=== PATIENT | female | born 1950 | race Caucasian/White ===

== ENCOUNTER 2024-01-09 08:37 | Inpatient (IN) ==
--- NOTE | 2023-12-22 14:53 | PAT Medication Instructions ---
Medication Instructions Date of Service December 22, 2023 Home Medications amlodipine 2.5 mg tablet (Norvasc) 5 mg PO QAM celecoxib 200 mg capsule (Celebrex) 200 mg PO QAM cholecalciferol (vitamin D3) 25 mcg (1,000 unit) capsule 25 mcg PO DAILY diphenhydramine 25 mg-acetaminophen 500 mg tablet (Tylenol PM Extra Strength) 1 tab PO Q6H PRN Sleep docusate sodium 100 mg capsule 100 mg PO DAILY baclofen 10 mg tablet 5 mg PO TID PRN Muscle Spasm ezetimibe 10 mg tablet (Zetia) 5 mg PO QAM tramadol 50 mg tablet 50 mg PO QAM ASK your surgeon for instructions celecoxib 200 mg capsule (Celebrex) 200 mg PO QAM DO NOT take the morning of surgery cholecalciferol (vitamin D3) 25 mcg (1,000 unit) capsule 25 mcg PO DAILY docusate sodium 100 mg capsule 100 mg PO DAILY Take morning of surgery With a small sip of water, OTHERWISE NOTHING TO EAT OR DRINK AFTER MIDNIGHT: amlodipine 2.5 mg tablet (Norvasc) 5 mg PO QAM baclofen 10 mg tablet 5 mg PO TID PRN Muscle Spasm (if needed) ezetimibe 10 mg tablet (Zetia) 5 mg PO QAM tramadol 50 mg tablet 50 mg PO QAM Take evening before surgery diphenhydramine 25 mg-acetaminophen 500 mg tablet (Tylenol PM Extra Strength) 1 tab PO Q6H PRN Sleep (if needed) baclofen 10 mg tablet 5 mg PO TID PRN Muscle Spasm (if needed) Other Notes If you have any questions please call us at [phone] or [phone] or [phone] or [phone]
--- NOTE | 2023-12-26 11:49 | Anesthesiology Consultation ---
Date of Service December 26, 2023 Assessment & Plan (1) Encounter for pre-operative examination: Chart Review Chart Review: Pending: Refer to Additional Notes / Consult section (pending cardio evaluation/PCP clearance ) and Patient seen in Pre Admission Testing - Please set up cardio clearance with [facility] for abnormal preop EKG - Awaiting PCP clearance 01/05/24 (Dr Janice Hale) - please send preop testing to PCP for review Per PAT appt on 12/26/23, no recent illness/disease exposures, illness related symptoms, or recent illness/disease positive tests. Will leave to surgeon's dis cretion if preop Covid testing needed Teaching & Discussion Pre-Anesthesia Teaching/Discussion Notes: Instructed NPO after midnight before surgery,except medications with 15 cc of water. Medication instructions provided according to the PAT guidelines. History Surgery Operation Date: 01/09/24 10:25 Proposed Procedures p L4-L5 Decompression and Fusion with Spinal Cord Monitoring - Samuel Leigh, Height/Weight Height: 4 ft 10 in Weight: 71.6 kg Allergies Allergy/AdvReac Type Severity Reaction Status Date / Time acetaminophen AdvReac Unknown Gastrointestinal Verified 12/22/23 11:33 [From Tylenol-Codeine] Upset codeine AdvReac Unknown Gastrointestinal Verified 12/22/23 11:33 [From Tylenol-Codeine] Upset cat gut sutures Allergy Unknown redness, Uncoded 12/22/23 11:33 inflammation bactrim AdvReac Unknown Nausea Uncoded 12/22/23 11:33 Medications Home Medications Medication Instructions Recorded Confirmed Last Taken amlodipine 2.5 mg tablet (Norvasc) 5 mg PO QAM 09/09/22 12/22/23 Unknown celecoxib 200 mg capsule (Celebrex) 200 mg PO QAM 09/09/22 12/22/23 Unknown cholecalciferol (vitamin D3) 25 25 mcg PO DAILY 09/09/22 12/22/23 Unknown mcg (1,000 unit) capsule diphenhydramine 25 1 tab PO Q6H PRN Sleep 09/09/22 12/22/23 Unknown mg-acetaminophen 500 mg tablet (Tylenol PM Extra Strength) docusate sodium 100 mg capsule 100 mg PO DAILY 09/09/22 12/22/23 Unknown baclofen 10 mg tablet 5 mg PO TID PRN Muscle Spasm 07/06/23 12/22/23 Unknown ezetimibe 10 mg tablet (Zetia) 5 mg PO QAM 07/06/23 12/22/23 Unknown tramadol 50 mg tablet 50 mg PO QAM 12/22/23 12/22/23 Unknown Past Medical History Medical History Anxiety Dyslipidemia Heart murmur diagnosed as child History of COVID-2021- no hosp; resolved Hx of basal cell carcinoma back Hyperparathyroidism s/p parathyroidectomy- no current issues - only follows with PCP Hypertension Kidney stones No recent issues Nausea and vomiting after administration of anesthetic agent Spinal stenosis Severe at L4-5 Exercise / Class Metabolic Activity III < 4 Walking/Shop/Light housework (one flight of stairs - no chest pain or SOB- goes very slow ) Past Surgical History Surgical History H/O lumpectomy age 12 H/O parathyroidectomy H/O: hysterectomy History of carpal tunnel release Hx of bilateral cataract extraction Hx of colonoscopy Hx of cystoscopy Hx of lithotripsy Past Anesthesia History No Hx of Anesthesia Complications (with exception PONV ) and No Family Hx of Anesthesia Complications History of PONV No Hx of Motion Sickness and History of PONV Social History Smoking Status: Never smoker Do You Dip or Chew Tobacco: No Hx Alcohol Use: No Hx Substance Use: No substance use type: does not use Review of Systems - Hx of reflux - very occ- relieved with antacids Patient denies chest pain, shortness of breath, dyspnea on exertion, cough, wheezing, palpitations. No hx of seizures, stroke, VT. No hx of blood clots or blood transfusions Physical Exam Vital Signs VITALS BP 174/72 (increased pain from drive to appt- will recheck when home (usually 140s systolically) and follow up with PCP if still elevated) P 65 TEMP 97.7 SP02 100% RESP 16 Constitutional no acute distress ENMT Mouth: no TMJ clicking Thyromental Distance: > or= 3.5 Finger Breadths (3.5) Mallampati Class: II Broken left upper molar Cap molar Neck + limited neck extension (significant ) Respiratory normal respiratory effort; no respiratory distress Auscultation: lungs clear to auscultation bilaterally; no wheezes Cardiovascular Rate/Rhythm: regular rate and regular rhythm Heart Sounds: + murmur (II-III/) Vessels: + carotid bruit (presumed radiation for murmur ) Musculoskeletal Spine: + pain with cervical ROM Extremities: extremities normal to inspection Psychiatric Orientation: alert Lab Results Anesthesia Preop Results Results Anesthesia Widget: WBC 7.30 K/ul (4.8-10.8) 12/26/23 Hgb 14.5 g/dl (12.0-16.0) 12/26/23 Hct 42.4 % (37.0-47.0) 12/26/23 Plt 226 K/uL (130-400) 12/26/23 Na 139 mmol/L (136-145) 12/26/23 K 4.3 mmol/L (3.5-5.1) 12/26/23 Cl 105 mmol/L (98-107) 12/26/23 CO2 25 mmol/L (21-32) 12/26/23 BUN 24 mg/dl (6-23) H 12/26/23 Creat 0.78 mg/dl (0.6-1.2) 12/26/23 Glucose Level 91 mg/dl (70-99(Fasting)) 12/26/23 PT 10.3 Seconds (9.0-12.0) 12/26/23 PTT 28 Seconds (21-31) 12/26/23 INR 0.9 (0.9-1.1) 12/26/23 Urine Color Yellow 12/26/23 Urine Appearance Clear (Clear) 12/26/23 Urine pH 7.0 (4.5-7.5) 12/26/23 Urine Specific Kane 1.010 (1.000-1.030) 12/26/23 Urine Protein Negative (Negative) 12/26/23 Urine Glucose (UA) Negative (Negative) 12/26/23 Urine Ketones Trace (Negative) H 12/26/23 Urine Blood 3+ (Negative) H 12/26/23 Urine Nitrite Negative (Negative) 12/26/23 Urine Bilirubin Negative (Negative) 12/26/23 Urine Urobilinogen Negative (Negative) 12/26/23 Urine Leukocyte Esterase 2+ (Negative) H 12/26/23 Urine WBC (Auto) 10-30 /hpf (0-5) H 12/26/23 Urine RBC (Auto) 10-30 /hpf (0-4) H 12/26/23 Urine Hyaline Casts (Auto) 0 /lpf (0-5) 12/26/23 Urine Epithelial Cells (Auto) 10-20 /lpf (0-5) H 12/26/23 Urine Bacteria (Auto) Negative (Negative) 12/26/23 Blood Type A Positive 12/26/23 Antibody Screen NEGATIVE 12/26/23 Testing Electrocardiogram Date: 12/26/23 Findings: + NSR @ (63bpm ) T wave abnormality, consider inferior ischemia Chest X-Ray Date: 12/26/23 Findings: + NAD Echocardiogram Date: 12/10/21 EF: 55-60% LV Function: normal RWMA: + none Other Findings: no LVH Mitral valve: Cannot exclude previous repairtrace MR Aortic valve: Degenerated valve, no significant gradients, no AI RVSP = 37 mmHg. Other Testing Carotid duplex 12/10/21= mild bilateral plaque, without hemodynamically significant stenosis on either side
[~2024-01-09 08:37] MED LIST: DEXAMETHASONE SOD INJ 4 MG/ML VIAL ONE; GLYCOPYRROLATE 0.2 MG/ML VIAL ONE; LIDOCAINE 2% 2 ML VIAL/AMP(20MG/ML) INFIL ONE; MIDAZOLAM HCL 1 MG/ML 2ML VIAL ONE; ONDANSETRON INJ 2 MG/ML 2 ML VIAL ONE; PROPOFOL IV EMULSION 10 MG/ML 20 ML VIAL IV ONE; ROCURONIUM BROMIDE 10 MG/ML 5 ML VIAL IV ONE; SUGAMMADEX SODIUM 200 MG/2 ML VIAL IV ONE; fentaNYL citrate PF 100 MCG/2 ML VIAL ONE
[2024-01-09] MEDS: CeleBREX 200 MG CAP PO SCH (09:31)
[2024-01-09] MEDS: GABAPENTIN 300 MG CAP PO SCH (09:31)
[2024-01-09] MEDS: LACTATED RINGER'S 1,000 ML IV SCH ×2 (09:44→17:38)
[2024-01-09] MEDS: LR 60ML/HR IV SCH (09:44)
[2024-01-09] MEDS ORDERED: ePHEDrine sulfate 50 MG/ML AMP IV PRN (09:59)
[2024-01-09] MEDS ORDERED: ONDANSETRON INJ 2 MG/ML 2 ML VIAL IV PRN ×2 (09:59→14:26)
[2024-01-09] MEDS ORDERED: PROMETHAZINE HCL 6.25 MG in SODIUM CHLORIDE 0.9% 50 ML IV PRN (09:59)
[2024-01-09] MEDS ORDERED: HYDROmorphone INJ 1 MG/ML SYRINGE IV PRN ×2 (09:59→14:26)
[2024-01-09] MEDS ORDERED: ATROPINE SULFATE 0.1 MG/ML 10ML SYR IV PRN (09:59)
--- NOTE | 2024-01-09 10:02 | History & Physical Bridge Note ---
Date of Service January 09, 2024 History & Physical Bridge Note I have examined the patient, reviewed the History & Physical and in the interval since the performance of the History & Physical I have noted the following changes of clinical significance: no changes noted
--- NOTE | 2024-01-09 10:03 | History & Physical Report ---
Date of Service January 09, 2024 Assessment & Plan (1) Neurogenic claudication due to lumbar spinal stenosis: Plan: L4-L5 decompression and fusion History of Present Illness Chief Complaint: Back and leg pain Primary Care Provider: Janice Hale This is a 73-year-old female presents with chronic persistent back and leg pain after failing course of nonoperative care is here for surgical invention. Allergies Allergy/AdvReac Type Severity Reaction Status Date / Time acetaminophen AdvReac Unknown Gastrointestinal Verified 01/09/24 09:23 [From Tylenol-Codeine] Upset codeine AdvReac Unknown Gastrointestinal Verified 01/09/24 09:23 [From Tylenol-Codeine] Upset cat gut sutures Allergy Unknown redness, Uncoded 12/22/23 11:33 inflammation bactrim AdvReac Unknown Nausea Uncoded 12/22/23 11:33 Home Medications Medication Instructions Recorded Confirmed Type amlodipine 2.5 mg tablet (Norvasc) 5 mg PO QAM 09/09/22 01/09/24 History celecoxib 200 mg capsule (Celebrex) 200 mg PO QAM 09/09/22 01/09/24 History cholecalciferol (vitamin D3) 25 25 mcg PO DAILY 09/09/22 01/09/24 History mcg (1,000 unit) capsule diphenhydramine 25 1 tab PO Q6H PRN Sleep 09/09/22 01/09/24 History mg-acetaminophen 500 mg tablet (Tylenol PM Extra Strength) docusate sodium 100 mg capsule 100 mg PO DAILY 09/09/22 01/09/24 History baclofen 10 mg tablet 5 mg PO TID PRN Muscle Spasm 07/06/23 01/09/24 History ezetimibe 10 mg tablet (Zetia) 5 mg PO QAM 07/06/23 01/09/24 History tramadol 50 mg tablet 50 mg PO QAM 12/22/23 01/09/24 History Past Med/Surg History Medical History (Updated 01/09/24 @ 10:02 by Samuel Leigh DO) Pulmonary hypertension RVSP 52mmHg per 12/2023 ECHO Aortic stenosis At most mild per 01/02/24 ECHO Hyperparathyroidism s/p parathyroidectomy- no current issues - only follows with PCP Anxiety Heart murmur diagnosed as child Nausea and vomiting after administration of anesthetic agent Hx of basal cell carcinoma back History of COVID-2021- no hosp; resolved Kidney stones No recent issues Hypertension Dyslipidemia Spinal stenosis Severe at L4-5 Surgical History Hx of colonoscopy Hx of bilateral cataract extraction Hx of lithotripsy Hx of cystoscopy H/O lumpectomy age 12 H/O parathyroidectomy History of carpal tunnel release H/O: hysterectomy Social History Smoking Status: Never smoker Second Hand Exposure: No; Do You Dip or Chew Tobacco: No; Tobacco Cessation Education Requested by Patient: No Hx Alcohol Use: No Hx Substance Use: No Preferred Language: Mauritian Communication Ability: Effective Visual Impairment: No Limitations Hearing Ability: Normal Wrestling Coach Required: No Beliefs That Will Affect Care: None marital status: Current Living Situation: Spouse current occupational status: employed 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
[2024-01-09] MEDS: ceFAZolin 2000MG 2,000 MG/15 ML SYR IV SCH ×2 (10:22→18:29)
[2024-01-09] MEDS ORDERED: fentaNYL citrate PF 100 MCG/2 ML VIAL ONE (10:40)
[2024-01-09] MEDS: BUPIVACAINE/EPINEPHRINE 0.5% MPF 1:200,000 30 ML VIAL ONE (10:52)
[2024-01-09] MEDS ORDERED: METOPROLOL TARTRATE 1 MG/ML VIAL IV ONE (11:25)
[2024-01-09] MEDS ORDERED: LABETALOL HCL IV 5 MG/ML 20ML IV ONE (11:25)
[2024-01-09] MEDS: FLOSEAL HEMOSTATIC MATRIX 10ML TOP ONE (11:45)
[2024-01-09] MEDS: ceFAZolin 330 MG/ML 1 GM VIAL ONE (11:52)
--- NOTE | 2024-01-09 12:13 | Operative Report ---
Post Operative Report Pre & Post Diagnosis Operation Date: 01/09/24 10:25 Pre-Op Diagnosis: Neurogenic claudication due to lumbar spinal stenosis Post-Op Diagnosis: Neurogenic claudication due to lumbar spinal stenosis I identified the patient and participated in the time-out.: Yes Procedure Operation Date: 01/09/24 10:25 Actual Procedures #1 lumbar decompression bilaterally facetectomies and foraminotomies L3-L4 L4- L5. #2 posterior spinal fusion L4-5 #3 placement posterior instrumentation L4-5 per #4 interbody fusion L4-5. #5 placement of Spira 12 x 22 mm x 2 at L4-5. #6 placement locally harvested morselized autograft in the posterior gutters. #7 placement of infuse collagen sponge combined with Koros in the posterior lateral gutters and course in the interbody space. Surgeon Samuel Leigh, Microstrategy Developer None Estimated Blood Loss 100 Findings See Below Patient is 4 foot 10 weighing over 69 kg with a BMI in excess of 32. Patient body habitus did contribute to significant technical difficulty requiring deeper retractors longer instruments in order to perform her procedure. This at least 50% increased operative time. Specimens None Indications This is a 73-year-old female presents problems diagnosis of failed course of nonoperative care is here for surgical invention. Description of Procedure Patient was met with identified informed consent obtained. Patient was then taken to the operative suite underwent patient placed in a prone position the Jarvis table of the Josemanuel frame. All bony promises well-padded eyes inspected to ensure no external precipice spinal. This point lumbar spine was prepped and draped in a sterile fashion. Sharp dissection with the assistance of Bovie cautery form down to and exposing the lamina transverse processes of L4 and L5 bilaterally. From caudal cephalad fashion complete laminectomy of L4 partial laminectomy L3 was performed including bilateral medial facetectomies and foraminotomies addressing severe spinal stenosis. Pedicle screws were then placed in L for L5 bilaterally with assistance of fluoroscopy and appropriate size dorothy placed. Bilateral transforaminal approach and left a discectomy of L4- 5 was performed endplates guarded to subcortical bleeding bone and a 12 x 22 mm spiral cage filled with Koros bone graft tapped in position. Then proceeded to the right transforaminal region at L4-5. I completed the discectomy curetted the endplates to subcortical bleeding bone and placed a second 12 x 22 mm spiral cage filled with Koros into position. The rods were then compressed locked in final position bilaterally. The transverse processes of L4-5 burred to subcortical bleeding bone. Infuse collagen sponge, with Koros and local autograft placed in the posterior gutters. 15 round HEATHER inserted. The incision was then closed with 1 Vicryl to fascia 2-0 Vicryl subcutaneously and 4 Monocryl for final skin closure. Steri-Strips dressings placed. Patient awakened taken to PACU stable condition. Please note spinal cord monitoring was utilized at the procedure no changes noted. I attest to the content of the Intraoperative Record and any orders documented therein. Any exceptions are noted below.
--- NOTE | 2024-01-09 12:49 | Fluoroscopy Report ---
FL lumbar spine 2-3V CLINICAL HISTORY: L4-L5 DECOMPRESSION AND FUSION TECHNIQUE: 2 views were obtained with the C-arm in the OR with the above procedure. Total fluoroscopy time was 21 seconds. Radiation dose was 17.4 mGy. Comparison: Comparison is made to lumbar spine radiograph 07/19/2023 FINDINGS/IMPRESSION: Intraoperative images were obtained of L4-L5 decompression and fusion. Please correlate with intraoperative fluoroscopy and operative report. ACT 112: Negative or not required by law. Electronically signed by: Abner Ortiz M.D. 01/09/2024 12:48 PM
[2024-01-09] MEDS: fentaNYL citrate PF 100 MCG/2 ML VIAL IV PRN (13:22)
--- NOTE | 2024-01-09 13:27 | Anesthesiology Progress Note ---
Date of Service January 09, 2024 Anesthesia Post Procedure Vital Signs Vital Signs: Temp Pulse Pulse Resp BP Pulse Ox O2 Del Method 01/09/24 13:15 54 L 13 144/56 H 99 Room Air 01/09/24 13:05 36.4 C L 67 12 146/61 H 96 Room Air 01/09/24 12:55 59 L 14 166/67 H 96 Oxymask 01/09/24 12:45 56 L 11 L 142/58 H 100 Oxymask 01/09/24 12:35 58 L 12 141/63 H 100 Oxymask 01/09/24 12:25 69 14 144/59 H 100 Oxymask 01/09/24 12:19 36.6 C 61 13 141/53 H 100 Oxymask 01/09/24 09:34 36.7 C 75 20 196/88 H 99 Room Air O2 Flow Rate 01/09/24 13:15 01/09/24 13:05 01/09/24 12:55 2 01/09/24 12:45 2 01/09/24 12:35 5 01/09/24 12:25 5 01/09/24 12:19 5 01/09/24 09:34 Pain Intensity Bilateral Lower Back: Pain Intensity: 4 Transfer of Care Handoff Completed per policy Notes Mental Status: alert / awake / arousable and participated in evaluation Patient Amnestic to Procedure: Yes Nausea / Vomiting: adequately controlled Pain: adequately controlled Airway Patency, RR, SpO2: stable & adequate BP & HR: stable & adequate Hydration State: stable & adequate Anesthetic Complications: no major complications apparent and Pt Satisfied with anesthetic care Notes: Patient noted to have very transient ST depression in OR upon induction as patient became hypertensive and tachycardic in the low 120's. Anesthetic was deepened and patient had labetalol and metoprolol given with excellent response in lowering her HR and ST's went back to baseline. Despite her having a normal echo preop and no ECG changes (along with cardiac clearance), she has not had a stress test since 2013. In recovery, patient awake and alert and denied any chest pain/pressure. ECG done and no apparent changes when compared to preop ECG. I did contact hospitalist service who had been previously consulted and the y were going to ensure patient was on telemetry overnight and would likely encourage patient to pursue ischemic workup from her log tumbler moving forward (defer to their rec's).
[2024-01-09] MEDS ORDERED: diphenhydrAMINE Capsule 25 MG CAP PO PRN (14:26)
[2024-01-09] MEDS ORDERED: PROMETHAZINE HCL 12.5 MG in SODIUM CHLORIDE 0.9% 50 ML IV PRN (14:26)
[2024-01-09] MEDS ORDERED: ACETAMINOPHEN 500 MG TAB PO PRN (14:26)
[2024-01-09] MEDS ORDERED: SOD PHOSPHATE/SOD BIPHOSPHATE ENEMA 132 ML BTL PR PRN (14:26)
[2024-01-09] MEDS ORDERED: ACETAMINOPHEN 1,000 MG/100 ML VIAL IV PRN (14:26)
[2024-01-09] MEDS ORDERED: LORazepam 0.5 MG in SYRINGE 0.25 ML IV PRN (14:26)
[2024-01-09] MEDS ORDERED: FAMOTIDINE 20 MG TAB PO PRN (14:26)
[2024-01-09] MEDS ORDERED: MAGNESIUM HYDROXIDE SUSP 30 ML UDC PO PRN (14:26)
[2024-01-09] MEDS ORDERED: BACLOFEN 10 MG TAB PO PRN (14:26)
[2024-01-09] MEDS ORDERED: DO NOT ADMINISTER FLU VACCINE PRN (14:26)
[2024-01-09] MEDS ORDERED: LORazepam 0.5 MG TAB PO PRN (14:26)
[2024-01-09] MEDS ORDERED: bisacodyL 10 MG SUPP PR PRN (14:26)
[2024-01-09] MEDS ORDERED: METOCLOPRAMIDE HCL INJ 5 MG/ML 2 ML VIAL IV PRN (14:26)
[2024-01-09] MEDS ORDERED: DO NOT ADMINISTER PNEUMOCOCCAL VACCINE PRN (14:26)
[2024-01-09] MEDS ORDERED: ONDANSETRON 4 MG OD TAB PO PRN (14:26)
[2024-01-09] MEDS ORDERED: ALUMINUM/MAGNESIUM SUSP 30 ML UDC PO PRN (14:26)
[2024-01-09] MEDS ORDERED: HYDROmorphone INJ 0.5 MG/0.5 ML SYR IV PRN (14:26)
[2024-01-09] MEDS ORDERED: hydrOXYzine HCl 25 MG TAB PO PRN (14:26)
[2024-01-09] MEDS ORDERED: NALOXONE HCL 0.4 MG/1 ML VIAL/CARP IV PRN (14:26)
--- NOTE | 2024-01-09 15:09 | Electrocardiogram Report ---
Test Reason : Blood Pressure : / mmHG Vent. Rate : 058 BPM Atrial Rate : 058 BPM P-R Int : 144 ms QRS Dur : 090 ms QT Int : 446 ms P-R-T Axes : 054 -01 -74 degrees QTc Int : 437 ms Sinus bradycardia Moderate voltage criteria for LVH, may be normal variant T wave abnormality, consider anterolateral ischemia Nonspecific T wave abnormality Inferior leads Abnormal ECG When compared with ECG of 26-DEC-2023 11:48, T wave inversion now evident in Anterolateral leads Confirmed by Anibal Blevins ([id number]) on 01/09/2024 3:08:37 PM Referred By: Samuel Leigh Confirmed By:Anibal Blevins
--- NOTE | 2024-01-09 15:50 | Consultation ---
Date of Consultation January 09, 2024 Assessment & Plan (1) Neurogenic claudication due to lumbar spinal stenosis: (2) Abnormal EKG: (3) HLD (hyperlipidemia): (4) Osteoporosis: Plan Pt is a 73yoF with PMhx significant for HTN, HLD, RA, osteoporosis, chronic back pain who is s/p lumbar decompression and spinal fusion with Dr Leigh on 01/10/2024. Hospital Medicine consulted due to cardiac abnormalities noted by anesthesia during surgery. Abnormal EKG Intraop HTN and Tachycardia Per Anesthesia, pt with episode of HTN and tachycardia (as high as 120s) during surgery, noted ST depressions during that time Was treated with IV labetalol and metoprolol and HTN, tachycardia and ST depressions resolved Noted that pt had normal pre-op EKG and echocardiogram, receiving medical clearance from her pcp and Cardiology in [place] on 01/02/2024 -cardiology clearance with [place] [facility] noting aortic stenosis (mild) and possible mild pulmonary HTN noted on pre-op echo (home improvement contractor notes her PA pressure was ~50) -pt reportedly due to have outpt stress test with Cardiology, had one last in 2013 Given cardiac changes noted during surgery which is a "stressor" in itself, will repeat EKG, echo and consult Cardiology inpatient for further recs. Continuous telemetry monitoring post-op. Plan discussed with pt and family at bedside and she is agreeable to further evaluation. HTN On amlodipine 5mg usually, PCP medical clearance noted that it was increased to 7.5mg until her surgery. Continue with the 5mg dose at this time. HLD Continue home ezetimibe Osteoporosis Vit D deficiency Continue home Vit D supplement Chronic back pain Neurogenic claudication due to lumbar spinal stenosis s/p Lumbar Decompression and spinal fusion with Dr Leigh on 01/10/2024 EBL#100ml Pain management per ortho Wound management per ortho PT/OT as appropriate DVT prophylaxis per ortho Incentive spirometry Monitor H&H for acute blood loss anemia; Pre-op Hgb: 14.5 Holding home baclofen, Celebrex, tramadol at this time. DVT prophylaxis: SCDs/TEDS at this time, per primary team Diet: HH CODE STATUS: Full code Dispo: per primary team History of Present Illness Requesting Physician: Dr. Leigh Reason for Consultation: abnormal EKG Attending Physician: Samuel Leigh, DO History of Present Illness Pt is a 73yoF with PMhx significant for HTN, HLD, RA, osteoporosis, chronic back pain who is s/p lumbar decompression and spinal fusion with Dr Leigh on 01/10/2024. Hospital Medicine consulted due to cardiac abnormalities noted by anesthesia during surgery. Pt was seen with family at bedside. Per Dr Patten, pt had episode of HTN and tachycardia to the 120s that resolved after administration of labetatol and metoprolol. However, ST depressions were noted during this time. Pt received pre-op cardiology clearance with recent unremarkable EKG and echo. Last stress test reportedly in 2013. She states that she climbs about 17 steps daily with no episodes of chest pain, SOB or palpitations. Post op noted that she felt fine, a bit groggy from the pain medications but denying chest pain, SOB, palpitations, N/V. States that she is due to follow up with [facility] as an outpt. Allergies Allergy/AdvReac Type Severity Reaction Status Date / Time acetaminophen AdvReac Unknown Gastrointestinal Verified 01/09/24 09:23 [From Tylenol-Codeine] Upset codeine AdvReac Unknown Gastrointestinal Verified 01/09/24 09:23 [From Tylenol-Codeine] Upset sulfamethoxazole AdvReac Nausea Verified 01/09/24 14:36 [From Sulfamethoxazole-Trimethoprim] trimethoprim AdvReac Nausea Verified 01/09/24 14:36 [From Sulfamethoxazole-Trimethoprim] cat gut sutures Allergy Unknown redness, Uncoded 12/22/23 11:33 inflammation Home Medications Medication Instructions Recorded Confirmed Type amlodipine 2.5 mg tablet (Norvasc) 5 mg PO QAM 09/09/22 01/09/24 History celecoxib 200 mg capsule (Celebrex) 200 mg PO QAM 09/09/22 01/09/24 History cholecalciferol (vitamin D3) 25 25 mcg PO DAILY 09/09/22 01/09/24 History mcg (1,000 unit) capsule diphenhydramine 25 1 tab PO Q6H PRN Sleep 09/09/22 01/09/24 History mg-acetaminophen 500 mg tablet (Tylenol PM Extra Strength) docusate sodium 100 mg capsule 100 mg PO DAILY 09/09/22 01/09/24 History baclofen 10 mg tablet 5 mg PO TID PRN Muscle Spasm 07/06/23 01/09/24 History ezetimibe 10 mg tablet (Zetia) 5 mg PO QAM 07/06/23 01/09/24 History tramadol 50 mg tablet 50 mg PO QAM 12/22/23 01/09/24 History Patient History Medical History (Updated 01/10/24 @ 02:17 by Dalia Montero MD) Pulmonary hypertension RVSP 52mmHg per 12/2023 ECHO Aortic stenosis At most mild per 01/02/24 ECHO Hyperparathyroidism s/p parathyroidectomy- no current issues - only follows with PCP Anxiety Heart murmur diagnosed as child Nausea and vomiting after administration of anesthetic agent Hx of basal cell carcinoma back History of COVID-2021- no hosp; resolved Kidney stones No recent issues Hypertension Dyslipidemia Spinal stenosis Severe at L4-5 Surgical History Hx of colonoscopy Hx of bilateral cataract extraction Hx of lithotripsy Hx of cystoscopy H/O lumpectomy age 12 H/O parathyroidectomy History of carpal tunnel release H/O: hysterectomy Social History Smoking Status: Never smoker Second Hand Exposure: No; Do You Dip or Chew Tobacco: No; Tobacco Cessation Education Requested by Patient: No Hx Alcohol Use: No Hx Substance Use: No Preferred Language: Burundian Communication Ability: Effective Visual Impairment: No Limitations Hearing Ability: Normal Staff Radiation Therapist Required: No Beliefs That Will Affect Care: None marital status: Current Living Situation: Spouse current occupational status: employed 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 No acute distress Psych: Appropriate mood and affect Neuro: difficulty with movements post-op in the bed HEENT: NC/AT Chest: Nontender to palpation. CV: RRR, Normal s1, s2. Blowing murmur appreciated Resp: Breath sounds clear bilaterally, no increased effort of breathing. Abdomen: Soft, nontender, nondistended. Extremities: No edema in lower extremities bilaterally. Results & Data Vital Signs (Past 12 Hours) Vital Signs Temp Pulse Pulse Resp BP Pulse Ox O2 Del Method 01/09/24 14:45 59 L 15 134/57 L 96 Room Air 01/09/24 14:15 52 L 12 130/52 L 94 Room Air 01/09/24 13:45 67 17 138/56 L 96 Room Air 01/09/24 13:35 55 L 13 146/60 H 98 Room Air 01/09/24 13:25 53 L 12 142/60 H 97 Room Air 01/09/24 13:15 54 L 13 144/56 H 99 Room Air 01/09/24 13:05 36.4 C L 67 12 146/61 H 96 Room Air 01/09/24 12:55 59 L 14 166/67 H 96 Oxymask 01/09/24 12:45 56 L 11 L 142/58 H 100 Oxymask 01/09/24 12:35 58 L 12 141/63 H 100 Oxymask 01/09/24 12:25 69 14 144/59 H 100 Oxymask 01/09/24 12:19 36.6 C 61 13 141/53 H 100 Oxymask 01/09/24 09:34 36.7 C 75 20 196/88 H 99 Room Air O2 Flow Rate 01/09/24 14:45 01/09/24 14:15 01/09/24 13:45 01/09/24 13:35 01/09/24 13:25 01/09/24 13:15 01/09/24 13:05 01/09/24 12:55 2 01/09/24 12:45 2 01/09/24 12:35 5 01/09/24 12:25 5 01/09/24 12:19 5 01/09/24 09:34 Diagnostic Findings Lumbar Spine X-Ray 01/09/24 10:25 FL lumbar spine 2-3V CLINICAL HISTORY: L4-L5 DECOMPRESSION AND FUSION TECHNIQUE: 2 views were obtained with the C-arm in the OR with the above procedu re. Total fluoroscopy time was 21 seconds. Radiation dose was 17.4 mGy. Comparison: Comparison is made to lumbar spine radiograph 07/19/2023 FINDINGS/IMPRESSION: Intraoperative images were obtained of L4-L5 decompression and fusion. Please correlate with intraoperative fluoroscopy and operative report. ACT 112: Negative or not required by law. Electronically signed by: Abner Ortiz M.D. 01/09/2024 12:48 PM
[2024-01-09] MEDS: DOCUSATE SODIUM/SENNA 50/8.6MG TAB PO SCH (21:09)
[2024-01-09] MEDS: oxyCODONE HCL IR 5 MG TAB (IMMEDIATE RELEASE) PO PRN (22:37)
[2024-01-10] MEDS: POLYETHYLENE (MIRALAX) 17 GM PACK PO SCH (05:41)
[2024-01-10 07:30] LABS: Basophils # (auto) 0.02 K/uL (0.00-0.20); Basophils % (auto) 0.2 %; Eosinophils # (auto) 0.01 K/uL (0.00-0.50); Eosinophils % (auto) 0.1 %; Hematocrit (blood only) 32.4 % (37.0-47.0); Hemoglobin 10.9 g/dl (12.0-16.0); Immature Granulocytes # (auto) 0.04 K/uL (0.01-0.20); Immature Granulocytes % (auto) 0.4 %; Lymphocytes # (auto) 1.72 K/uL (1.20-3.40); Mean Corpuscular Hemoglobin 31.5 pg (25.0-34.0); Mean Corpuscular Hgb Conc 33.6 g/dL (32.0-36.0); Mean Corpuscular Volume 93.6 fL (80.0-100.0); Mean Platelet Volume 10.8 fL (9.4-12.4); Monocytes # (auto) 0.97 K/uL (0.11-0.59); Neutrophils # (auto) 8.02 K/uL (1.40-6.50); Neutrophils % (auto) 74.3 %; Platelet Count 173 K/uL (130-400); RDW Standard Deviation 41.2 fL (36.4-46.3); Red Blood Count 3.46 M/uL (4.20-5.40); White Blood Count 10.78 K/ul (4.8-10.8)
[2024-01-10 07:58] LABS: BUN Creatinine Ratio 25.4 (10-20); Calcium 8.5 mg/dl (8.6-10.3); Creatinine Clr Calc Pharmacy 59.3 ml/min; Est GFR (African American) 97.3 ml/min; Est GFR (Non-African American) 83.9 ml/min
--- NOTE | 2024-01-10 08:44 | Cardiology Consultation ---
Date of Consultation January 10, 2024 Assessment & Plan (1) Abnormal EKG: (2) Neurogenic claudication due to lumbar spinal stenosis: (3) Hypertension: Plan Patient seen/evaluated today in collaboration with attending microsoft dynamics ax consultant, Dr. Yusuf. See attending microsoft dynamics ax consultant's documentation for recommendations and further plan of care. Supervising Physician Co-Signing Physician Notes Attending Staff: Pt seen and evaluated with AP Staff Concur with observations and plans 73 yo woman presenting for Spinal Surgery - 01/09/24 Consult for- Abnormal EKG and Tachycardia during surgery HTN + Tahcycardia during surgery Treated with IV Labetalol and IV Metoprolol - improvement in Tachycardia ? of SVT - HR's reported to be in the 120's No Strips Available No known Hx of Afib/flutter EKG - post op - Anterolateral TWI. NC 144, question of Delta wave K+ was 4 TSH - Pending Hx: * HTN * Hyperlipidemia * Mild - 12/2023 * Abnormal EKG - inferior TWI - prior to OR visit Plans: * Check Troponin * Repeat EKG * K+ goal 4.5-5 * Mag goal >2 * Check TSH * Check ECHO * Start Toprol XL 12.5 mg po per day * Start Lisinopril 5 mg po per day later today if SBP >130 mmHg * May be able to manage SBP with only RICARDO * Check LDL * Continue Zetia 10 mg po per day * Pt with myalgias on Statin Jordy Yusuf History of Present Illness Reason for Consultation: Abnormal EKG; Tachycardia during spinal surgery Requesting Physician: Dr. Montero Attending Physician: Dr. Yusuf History of Present Illness Patient is a 73-year-old female who was admitted to [facility] for Lumbar decompression and spinal fusion with Dr. Leigh on 01/10/2024. History includes: 1. Hypertension 2. Dyslipidemia 3. Mild Aortic stenosis per echo in Dec 2023 4. Abnormal EKG with T wave inversion in inferior leads (preop) During operation, patient was found to have an episode of tachycardia with heart rates in the 120s and resultant ST depression. Treated with IV labetalol and IV metoprolol and HR improved. EKG was not obtained during that time. Post op EKG was obtained which demonstrated sinus hellen with T wave inversions in anterolateral leads. EKG obtained here during preop eval demonstrated NSR with inferior T wave abnormalities. No anginal symptoms reported. Last stress test in 2013. Patient apparently was evaluated by [facility] for medical/cardiac clearance prior to surgery. She had echo which demonstrated mild aortic stenosis, mild pulm hypertension. EKG was without ischemic changes per notes. EKG obtained here during preop eval demonstrated NSR with inferior T wave abnormalities. No anginal symptoms reported. Last stress test in 2013. Patient reported she was chest pain free upon awakening from surgery. however, given abnormal EKG and events during surgery, further evaluation was recommended. Echo was ordered and is pending. HS troponin was not ordered. At time of consult patient feeling well this morning. Mild back pain with movement. No chest pain/dyspnea reported. No history of arrhythmias. No history of syncope or near syncope. No history of CVA. No history of MD/CAD, CHF Allergies Allergy/AdvReac Type Severity Reaction Status Date / Time acetaminophen AdvReac Unknown Gastrointestinal Verified 01/09/24 09:23 [From Tylenol-Codeine] Upset codeine AdvReac Unknown Gastrointestinal Verified 01/09/24 09:23 [From Tylenol-Codeine] Upset sulfamethoxazole AdvReac Nausea Verified 01/09/24 14:36 [From Sulfamethoxazole-Trimethoprim] trimethoprim AdvReac Nausea Verified 01/09/24 14:36 [From Sulfamethoxazole-Trimethoprim] cat gut sutures Allergy Unknown redness, Uncoded 12/22/23 11:33 inflammation Home Medications Medication Instructions Recorded Confirmed Type amlodipine 2.5 mg tablet (Norvasc) 5 mg PO QAM 09/09/22 01/09/24 History celecoxib 200 mg capsule (Celebrex) 200 mg PO QAM 09/09/22 01/09/24 History cholecalciferol (vitamin D3) 25 25 mcg PO DAILY 09/09/22 01/09/24 History mcg (1,000 unit) capsule diphenhydramine 25 1 tab PO Q6H PRN Sleep 09/09/22 01/09/24 History mg-acetaminophen 500 mg tablet (Tylenol PM Extra Strength) docusate sodium 100 mg capsule 100 mg PO DAILY 09/09/22 01/09/24 History baclofen 10 mg tablet 5 mg PO TID PRN Muscle Spasm 07/06/23 01/09/24 History ezetimibe 10 mg tablet (Zetia) 5 mg PO QAM 07/06/23 01/09/24 History tramadol 50 mg tablet 50 mg PO QAM 12/22/23 01/09/24 History oxycodone 5 mg tablet 5 mg PO Q6H PRN pain #30 tabs 01/10/24 Rx tramadol 50 mg tablet 50 mg PO Q6H PRN pain, moderate 01/10/24 Rx #30 tabs Patient History Medical History (Updated 01/10/24 @ 09:04 by Sariah Alejo PA-C) Pulmonary hypertension RVSP 52mmHg per 12/2023 ECHO Aortic stenosis At most mild per 01/02/24 ECHO Hyperparathyroidism s/p parathyroidectomy- no current issues - only follows with PCP Anxiety Heart murmur diagnosed as child Nausea and vomiting after administration of anesthetic agent Hx of basal cell carcinoma back History of COVID-2021- no hosp; resolved Kidney stones No recent issues Hypertension Dyslipidemia Spinal stenosis Severe at L4-5 Surgical History Hx of colonoscopy Hx of bilateral cataract extraction Hx of lithotripsy Hx of cystoscopy H/O lumpectomy age 12 H/O parathyroidectomy History of carpal tunnel release H/O: hysterectomy Social History Smoking Status: Never smoker Second Hand Exposure: No; Do You Dip or Chew Tobacco: No; Tobacco Cessation Education Requested by Patient: No Hx Alcohol Use: No Hx Substance Use: No Preferred Language: [place] Islander Communication Ability: Effective Visual Impairment: No Limitations Hearing Ability: Normal Sewing Supervisor Required: No Beliefs That Will Affect Care: None marital status: Current Living Situation: Spouse current occupational status: employed 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, 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 Other Information That Helps Us Care for You: No Feels Safe at Home: Yes Safety Concerns: Feels Safe At This Time Assistive Devices: None Review of Systems Review of Systems: All systems reviewed & are unremarkable except as noted in HPI & below Physical Exam Physical Exam: Obese Glasses JVP at base of neck 2-3/6 Systolic murmur c/w S2 audible CTA B + BS No edema Extremities warm and perfused Results & Data Vital Signs (Past 12 Hours) Vital Signs Temp Pulse Pulse Pulse Resp BP Pulse Ox 01/10/24 07:44 36.8 C 68 18 155/70 H 96 01/10/24 07:27 70 01/10/24 04:00 36.7 C 64 17 160/80 H 96 01/10/24 02:57 36.7 C 64 17 160/80 H 96 01/10/24 00:00 36.7 C 71 18 134/68 95 01/09/24 22:33 36.7 C 71 18 134/68 95 01/09/24 21:58 63 01/09/24 20:56 36.8 C 61 18 144/68 H 95 O2 Del Method 01/10/24 07:44 Room Air 01/10/24 07:27 01/10/24 04:00 Room Air 01/10/24 02:57 Room Air 01/10/24 00:00 Room Air 01/09/24 22:33 Room Air 01/09/24 21:58 01/09/24 20:56 Room Air Laboratory Results CBC 01/10/24 Range/Units 06:49 WBC 10.78 (4.8-10.8) K/ul RBC 3.46 L (4.20-5.40) M/uL Hgb 10.9 L (12.0-16.0) g/dl Hct 32.4 L (37.0-47.0) % Plt Count 173 (130-400) K/uL Neut # (Auto) 8.02 H (1.40-6.50) K/uL Lymph # (Auto) 1.72 (1.20-3.40) K/uL [place] # (Auto) 0.97 H (0.11-0.59) K/uL Eos # (Auto) 0.01 (0.00-0.50) K/uL Baso # (Auto) 0.02 (0.00-0.20) K/uL Comprehensive Metabolic Panel 01/10/24 Range/Units 06:49 Sodium 139 (136-145) mmol/L Potassium 4.0 (3.5-5.1) mmol/L Chloride 107 (98-107) mmol/L Carbon Dioxide 27 (21-32) mmol/L BUN 18 (6-23) mg/dl Creatinine 0.71 (0.6-1.2) mg/dl Glucose 95 (70-99(Fasting)) mg/dl Calcium 8.5 L (8.6-10.3) mg/dl Intake and Output 01/09/24 01/10/24 01/10/24 22:59 06:59 14:59 Intake Total 450 / 3313.334 1463.334 / 3313.334 Output Total 650 / 1160 140 / 1160 Balance -200 / 2153.334 1323.334 / 2153.334 Intake: IV 1263.334 / 1263.334 Lactated Ringer's 1,000 ml @ 1263.334 / 1263.334 100 mls/hr IV .Q10H [facility] Rx#: [id number] IV Perioperative 300 / 1700 Oral 150 / 350 200 / 350 Output: Urine 350 / 500 Drain Output 300 / 560 140 / 560 Right Back 300 / 560 140 / 560 Other: Weight 75.296 kg 72.1 kg Weight Measurement Method Built in [facility] Built in [facility] Diagnostic Findings Telemetry reviewed: NSR with HR in the 60-70's EKG reviewed from 01/09/24: Sinus bradycardia Moderate voltage criteria for LVH, may be normal variant T wave abnormality, consider anterolateral ischemia Nonspecific T wave abnormality Inferior leads Abnormal ECG When compared with ECG of 26-DEC-2023 11:48, T wave inversion now evident in Anterolateral leads Echo report reviewed from [facility] dated 01/02/24: 1. LV size and wall thickness is normal. EF 60-65% 2. RV is normal in size and function 3. Degenerated aortic valve, at most mild 4. Mild TR with RVSP 52 mmHg EKG reviewed from 12/26/23: NSR with T wave abnormality in inferior leads. No prior EKG's for comparison Medications Administered Current Inpatient Medications Acetaminophen (Acetaminophen 500 Mg Tab) 1,000 mg PO Q8H PRN PRN Reason: MILD Pain Scale 1,2,3 & Pre PT Stop: 02/08/24 14:25 Al Hydrox/Mg Hydrox/Simethicone (Aluminum/Magnesium Susp 30 Ml Udc) 30 ml PO Q6H PRN PRN Reason: Dyspepsia Stop: 02/08/24 14:25 Amlodipine Besylate (Amlodipine Besylate 5 Mg Tab) 5 mg PO QAM [facility] Stop: 02/09/24 08:59 Baclofen (Baclofen 10 Mg Tab) 5 mg PO TID PRN PRN Reason: Muscle Spasm Stop: 02/08/24 14:25 Bisacodyl (Bisacodyl 10 Mg Supp) 10 mg NC DAILY PRN PRN Reason: Constipation Stop: 02/08/24 14:25 Diphenhydramine HCl (Diphenhydramine Capsule 25 Mg Cap) 25 mg PO Q6H PRN PRN Reason: Allergic Rhinitis/Insomnia Stop: 02/08/24 14:25 Ezetimibe (Ezetimibe 10 Mg Tab) 5 mg PO QAM [facility] Stop: 02/09/24 08:59 Famotidine (Famotidine 20 Mg Tab) 20 mg PO Q12H PRN PRN Reason: Dyspepsia Stop: 02/08/24 14:25 Hydromorphone HCl (Hydromorphone Inj 0.5 Mg/0.5 Ml Syr) 0.5 mg IV Q3H PRN PRN Reason: MODERATE Pain (Scale 4,5,6) & Pre PT Stop: 01/23/24 14:25 Hydromorphone HCl (Hydromorphone Inj 1 Mg/Ml Syringe) 1 mg IV Q3H PRN PRN Reason: SEVERE Pain (Scale 7,8,9,10) Stop: 01/23/24 14:25 Hydroxyzine HCl (Hydroxyzine Hcl 25 Mg Tab) 25 mg PO Q8H PRN PRN Reason: Anxiety Stop: 02/08/24 14:25 Lactated Ringer's (Lr) 1,000 mls @ 100 mls/hr IV .Q10H [facility] Stop: 02/08/24 14:25 Last Infusion: 01/10/24 06:16 Dose: 0 mls/hr Promethazine HCl 12.5 mg/ (Sodium Chloride) 50.5 mls @ 202 mls/hr IV Q6H PRN PRN Reason: Nausea &/or Vomiting Stop: 02/08/24 14:25 Acetaminophen (Ofirmev) 1,000 mg in 100 mls @ 400 mls/hr IV Q8H PRN PRN Reason: Pain Rating 1-3 & Pre PT Stop: 01/12/24 14:25 Lorazepam 0.5 mg/ Syringe 0.5 mls @ 2 mls/min IV Q8H PRN; Protocol PRN Reason: Sedation/Anxiety Stop: 02/08/24 14:25 Dexamethasone 6 mg/ Syringe 1.5 mls @ 1 mls/min IV DAILY [facility] Stop: 01/12/24 09:02 Influenza Virus Vaccine Quadrival (Do Not Administer Flu Vaccine) 1 each N/A PRN PRN PRN Reason: Notification Stop: 02/08/24 14:25 Lorazepam (Lorazepam 0.5 Mg Tab) 0.5 mg PO Q8H PRN PRN Reason: Sedation/Anxiety Stop: 02/08/24 14:25 Magnesium Hydroxide (Magnesium Hydroxide Susp 30 Ml Udc) 30 ml PO Q24H PRN PRN Reason: Constipation Stop: 02/08/24 14:25 Metoclopramide HCl (Metoclopramide Hcl Inj 5 Mg/Ml 2 Ml Vial) 10 mg IV Q6H PRN PRN Reason: Nausea &/or Vomiting Stop: 02/08/24 14:25 Naloxone HCl (Naloxone Hcl 0.4 Mg/1 Ml Vial/Carp) 0.1 mg IV Q5M PRN PRN Reason: Oversedation/Resp depression Stop: 02/08/24 14:25 Ondansetron HCl (Ondansetron Inj 2 Mg/Ml 2 Ml Vial) 4 mg IV Q6H PRN PRN Reason: Nausea &/or Vomiting Stop: 02/08/24 14:25 Ondansetron HCl (Ondansetron 4 Mg Od Tab) 4 mg PO Q6H PRN PRN Reason: Nausea Stop: 02/08/24 14:25 Oxycodone HCl (Oxycodone Hcl Ir 5 Mg Tab (Immediate Release)) 5 - 10 mg PO Q4H PRN PRN Reason: Pain & Pre PT Stop: 01/23/24 14:25 Last Admin: 01/10/24 05:40 Dose: 5 mg Pneumococcal Polyvalent Vaccine (Do Not Administer Pneumococcal Vaccine) 1 each N/A PRN PRN PRN Reason: Notification Stop: 02/08/24 14:25 Polyethylene Glycol (Polyethylene (Miralax) 17 Gm Pack) 17 gm PO Q6 [facility] Stop: 02/09/24 05:59 Last Admin: 01/10/24 05:41 Dose: 17 gm Senna/Docusate Sodium (Docusate Sodium/Senna 50/8.6mg Tab) 2 tab PO HS [facility] Stop: 02/08/24 20:59 Last Admin: 01/09/24 21:09 Dose: 2 tab Sodium Biphosphate/Sodium Phosphate (Sod Phosphate/Sod Biphosphate Enema 132 Ml Btl) 132 ml NC ONE PRN PRN Reason: Constipation Stop: 02/08/24 14:25 Tramadol HCl (Tramadol Hcl 50 Mg Tablet) 50 - 100 mg PO Q4H PRN PRN Reason: Moderate-Severe pain & Pre PT Stop: 02/08/24 14:25 Vitamin D (Cholecalciferol 25 Mcg (1000 Units) Tab) 25 mcg PO DAILY [facility] Stop: 02/09/24 08:59 (3) Hypertension Hypertension type: primary hypertension Qualified Code(s): I10 - Essential (primary) hypertension
[2024-01-10] MEDS: EZETIMIBE 10 MG TAB PO SCH (09:35)
[2024-01-10] MEDS: dexAMETHasone 6 MG in SYRINGE 0 ML IV SCH (09:35)
[2024-01-10] MEDS: amLODIPine BESYLATE 5 MG TAB PO SCH (09:36)
[2024-01-10] MEDS: CHOLECALCIFEROL 25 MCG (1000 UNITS) TAB PO SCH (09:37)
[2024-01-10 10:08] LABS: Troponin I High Sensitivity 9.2 pg/ml (0-14)
[2024-01-10 10:17] LABS: Thyroid Stimulating Hormone 0.673 uIu/ml (0.300-4.500)
[2024-01-10] MEDS: METOPROLOL SUCC 25MG EXT REL TAB PO SCH (10:35)
[2024-01-10] MEDS: traMADol HCL 50 MG TABLET PO PRN (10:38)
--- NOTE | 2024-01-10 13:28 | Orthopedic Progress Note ---
Date of Service January 10, 2024 Assessment & Plan (1) Neurogenic claudication due to lumbar spinal stenosis: Plan: This time continue physical therapy monitor HEATHER operatively discharge home in the next few days. Admission and Anticipated Discharge Date Admission Date: January 09, 2024 Subjective Back pain controlled leg pain improved Physical Exam Physical Exam: Patient is in the chair at the bedside. She is comfortable. Is good strength testing. Results & Data Vital Signs (Past 12 Hours) Vital Signs Temp Pulse Pulse Pulse Resp BP Pulse Ox 01/10/24 07:44 36.8 C 68 18 155/70 H 96 01/10/24 07:27 70 01/10/24 04:00 36.7 C 64 17 160/80 H 96 01/10/24 02:57 36.7 C 64 17 160/80 H 96 O2 Del Method 01/10/24 07:44 Room Air 01/10/24 07:27 01/10/24 04:00 Room Air 01/10/24 02:57 Room Air Queries Orthopedic Spine Acute Posthemorrhagic Anemia: Yes Obesity: Yes
--- NOTE | 2024-01-10 16:33 | Electrocardiogram Report ---
Test Reason : Blood Pressure : / mmHG Vent. Rate : 067 BPM Atrial Rate : 067 BPM P-R Int : 142 ms QRS Dur : 086 ms QT Int : 368 ms P-R-T Axes : 032 -01 -65 degrees QTc Int : 388 ms Normal sinus rhythm Voltage criteria for left ventricular hypertrophy Nonspecific T wave abnormality Inferior leads Abnormal ECG When compared with ECG of 09-JAN-2024 12:35, Nonspecific T wave abnormality has replaced inverted T waves in Anterior leads QT has shortened Confirmed by Anibal Blevins ([id number]) on 01/10/2024 4:33:40 PM Referred By: Samuel Leigh Confirmed By:Anibal Blevins
--- NOTE | 2024-01-11 02:09 | Hospitalist Progress Note ---
Date of Service January 10, 2024 Assessment & Plan (1) Neurogenic claudication due to lumbar spinal stenosis: (2) Abnormal EKG: (3) HLD (hyperlipidemia): (4) Osteoporosis: Plan Pt is a 73yoF with PMhx significant for HTN, HLD, RA, osteoporosis, chronic back pain who is s/p lumbar decompression and spinal fusion with Dr Leigh on 01/10/2024. Hospital Medicine consulted due to cardiac abnormalities noted by anesthesia during surgery. 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 Continuous t elemetry monitoring post-op. Plan discussed with pt and family at bedside and she is agreeable to further evaluation. Cardiology consulted, appreciate recs -trop, TSH, repeat EKG, echo, LDL -Mag goal >2, K goal 4.5-5 -start Toprol XL, consider addition of lisinopril -continue zetia, statin intolerance HTN On amlodipine 5mg usually, PCP medical clearance noted that it was increased to 7.5mg until her surgery. Continue with the 5mg dose at this time. Metoprolol succ 12.5mg added by cardiology on 01/09. Per cardiology consider lisinopril addition HLD Continue home ezetimibe Osteoporosis Vit D deficiency Continue home Vit D supplement Chronic back pain Neurogenic claudication due to lumbar spinal stenosis s/p Lumbar Decompression and spinal fusion with Dr Leigh on 01/10/2024 EBL#100ml Pain management per ortho Wound management per ortho PT/OT as appropriate DVT prophylaxis per ortho Incentive spirometry Monitor H&H for acute blood loss anemia; Pre-op Hgb: 14.5, hgb currently 10.5 postop Holding home baclofen, Celebrex, tramadol at this time. DVT prophylaxis: SCDs/TEDS at this time, per primary team Diet: HH CODE STATUS: Full code Dispo: per primary team Admission and Anticipated Discharge Date Admission Date: January 09, 2024 Subjective Pt was seen sitting at bedside. Had just worked with PT, walking the halls post op. Denied acute concerns. Review of Systems Review of Systems: All systems reviewed & are unremarkable except as noted in Subjective Physical Exam Physical Exam: General: Alert, oriented. No acute distress Psych: Appropriate mood and affect Neuro: no gross deficits sitting in chair HEENT: NC/AT Chest: Nontender to palpation. CV: RRR, Normal s1, s2. Blowing murmur appreciated Resp: Breath sounds clear bilaterally, no increased effort of breathing. Abdomen: Soft, nontender, nondistended. Extremities: No edema in lower extremities bilaterally. Results & Data Results & Data Vital Signs (Past 12 Hours) Vital Signs Temp Pulse Pulse Pulse Resp BP Pulse Ox 01/10/24 07:44 36.8 C 68 18 155/70 H 96 01/10/24 07:27 70 01/10/24 04:00 36.7 C 64 17 160/80 H 96 01/10/24 02:57 36.7 C 64 17 160/80 H 96 01/10/24 00:00 36.7 C 71 18 134/68 95 01/09/24 22:33 36.7 C 71 18 134/68 95 01/09/24 21:58 63 01/09/24 20:56 36.8 C 61 18 144/68 H 95 O2 Del Method 01/10/24 07:44 Room Air 01/10/24 07:27 01/10/24 04:00 Room Air 01/10/24 02:57 Room Air 01/10/24 00:00 Room Air 01/09/24 22:33 Room Air 01/09/24 21:58 01/09/24 20:56 Room Air
[2024-01-11 06:38] LABS: Hematocrit (blood only) 35.9 % (37.0-47.0); Mean Corpuscular Hemoglobin 31.7 pg (25.0-34.0); Mean Corpuscular Hgb Conc 33.4 g/dL (32.0-36.0); Mean Platelet Volume 10.8 fL (9.4-12.4); Platelet Count 191 K/uL (130-400); RDW Coefficient of Variation 12.2 % (11.5-14.5); RDW Standard Deviation 42.8 fL (36.4-46.3); Red Blood Count 3.78 M/uL (4.20-5.40); White Blood Count 11.45 K/ul (4.8-10.8)
[2024-01-11 06:57] LABS: BUN Creatinine Ratio 28.4 (10-20); Calcium 9.2 mg/dl (8.6-10.3); Chol HDL Ratio 2.8 (0-5); Creatinine Clr Calc Pharmacy 56.8 ml/min; Est GFR (African American) 92.5 ml/min; Est GFR (Non-African American) 79.8 ml/min; Magnesium 2.1 mg/dl (1.7-2.4); Phosphorus 3.1 mg/dl (2.5-4.9); Potassium 4.1 mmol/L (3.5-5.1)
--- NOTE | 2024-01-11 08:06 | Electrocardiogram Report ---
Test Reason : Blood Pressure : / mmHG Vent. Rate : 066 BPM Atrial Rate : 066 BPM P-R Int : 130 ms QRS Dur : 090 ms QT Int : 412 ms P-R-T Axes : 023 003 -37 degrees QTc Int : 431 ms Normal sinus rhythm Voltage criteria for left ventricular hypertrophy Nonspecific T wave abnormality Inferolateral leads Abnormal ECG When compared with ECG of 10-JAN-2024 05:50, Inverted T waves have replaced nonspecific T wave abnormality in Inferior leads Confirmed by Anibal Blevins ([id number]) on 01/11/2024 8:06:24 AM Referred By: Samuel Leigh Confirmed By:Anibal Blevins
--- NOTE | 2024-01-11 08:23 | Orthopedic Progress Note ---
Date of Service January 11, 2024 Assessment & Plan (1) Neurogenic claudication due to lumbar spinal stenosis: Plan: This time we will transfer to the orthopedic floor if cleared by medicine. Will continue physical therapy. Admission and Anticipated Discharge Date Admission Date: January 09, 2024 Subjective Patient complaining of significant back pain. She is quite tired secondary to unable to sleep in her current environment. Physical Exam Physical Exam: Patient is in the chair at bedside. Constricted testing. Results & Data Vital Signs (Past 12 Hours) Vital Signs Temp Pulse Pulse Resp BP Pulse Ox O2 Del Method 01/11/24 08:09 36.6 C 59 L 16 154/84 H 98 Room Air 01/11/24 04:00 36.6 C 71 18 160/73 H 96 Room Air 01/10/24 23:20 36.7 C 60 18 158/69 H 97 Room Air Queries Orthopedic Spine Acute Posthemorrhagic Anemia: Yes Obesity: Yes
[2024-01-11] MEDS: KETOROLAC TROMETHAMINE 15 MG/ML VIAL IV ONE (09:51)
--- NOTE | 2024-01-11 11:05 | Cardiology Progress Note ---
Date of Service January 11, 2024 Assessment & Plan Admission and Anticipated Discharge Date Admission Date: January 09, 2024 Supervising Physician Co-Signing Physician Notes Attending Staff: 73 yo woman presenting for Spinal Surgery - 01/09/24 Consult for- Abnormal EKG and Tachycardia during surgery HTN + Tahcycardia during surgery Treated with IV Labetalol and IV Metoprolol - improvement in Tachycardia ? of SVT - HR's reported to be in the 120's No Strips Available No known Hx of Afib/flutter EKG - post op - Anterolateral TWI. CT 144, question of Delta wave K+ was 4 TSH - 0.67 (WNL) Hx: * HTN * Hyperlipidemia * Mild - 12/2023 * Abnormal EKG - inferior TWI - prior to OR visit Plans: * Troponin - 9.2 * Repeat EKG - reviewed - No changes * K+ goal 4.5-5 * Mag goal >2 * TSH - 0.67 (WNL) * ECHO - reviewed - LVEF 60-65%, mild concentric LVH, aortic sclerosis, mild MR * Continue Toprol XL 12.5 mg po per day * SBP 154 mmHg * Consider increasing Amlodipine to 10 mg po per day * Goal SBP 120 mmHg * LDL -96 * Continue Zetia 10 mg po per day * Pt with myalgias on Statin * Consider outpt ZioPatch to check for Afib * Please arrange for follow up with Cardiology at [facility] (where she was seen preop) * Please call back with any additional questions Jordy Yusuf Subjective Events overnight: * No events reported * PVC/PAC on Telemetry - no afib Subjective: * Post op pain Review of Systems Review of Systems: All systems reviewed & are unremarkable except as noted in HPI & below Physical Exam Physical Exam: Obese Glasses JVP at base of neck 2-3/6 Systolic murmur c/w S2 audible CTA B + BS No edema Extremities warm and perfused Results & Data Vital Signs (Past 12 Hours) Vital Signs Temp Pulse Pulse Pulse Resp BP Pulse Ox 01/11/24 08:09 36.6 C 59 L 16 154/84 H 98 01/11/24 06:02 65 01/11/24 04:00 36.6 C 71 18 160/73 H 96 01/10/24 23:20 36.7 C 60 18 158/69 H 97 O2 Del Method 01/11/24 08:09 Room Air 01/11/24 06:02 01/11/24 04:00 Room Air 01/10/24 23:20 Room Air Laboratory Results Lipids 01/11/24 Range/Units 06:18 Triglycerides 111 (0-150) mg/dl Cholesterol 184 (0-200) mg/dl HDL Cholesterol 66 mg/dl Cholesterol/HDL Ratio 2.8 (0-5) CBC 01/11/24 Range/Units 06:18 WBC 11.45 H (4.8-10.8) K/ul RBC 3.78 L (4.20-5.40) M/uL Hgb 12.0 (12.0-16.0) g/dl Hct 35.9 L (37.0-47.0) % Plt Count 191 (130-400) K/uL Comprehensive Metabolic Panel 01/11/24 Range/Units 06:18 Sodium 140 (136-145) mmol/L Potassium 4.1 (3.5-5.1) mmol/L Chloride 106 (98-107) mmol/L Carbon Dioxide 29 (21-32) mmol/L BUN 21 (6-23) mg/dl Creatinine 0.74 (0.6-1.2) mg/dl Glucose 96 (70-99(Fasting)) mg/dl Calcium 9.2 (8.6-10.3) mg/dl Intake and Output 01/10/24 01/11/24 01/11/24 22:59 06:59 14:59 Intake Total 300 / 720 180 / 720 Output Total 40 / 155 35 / 155 55 / 55 Balance 260 / 565 145 / 565 -55 / -55 Intake: Oral 300 / 720 180 / 720 Output: Drain Output 40 / 155 35 / 155 55 / 55 Right Back 40 / 155 35 / 155 55 / 55 Other: Weight 71.7 kg Weight Measurement Method Built in [facility] Medications Administered Current Inpatient Medications Acetaminophen (Acetaminophen 500 Mg Tab) 1,000 mg PO Q8H PRN PRN Reason: MILD Pain Scale 1,2,3 & Pre PT Stop: 02/08/24 14:25 Al Hydrox/Mg Hydrox/Simethicone (Aluminum/Magnesium Susp 30 Ml Udc) 30 ml PO Q6H PRN PRN Reason: Dyspepsia Stop: 02/08/24 14:25 Amlodipine Besylate (Amlodipine Besylate 5 Mg Tab) [facility] Stop: 02/09/24 08:59 Last Admin: 01/11/24 09:50 Dose: 5 mg Baclofen (Baclofen 10 Mg Tab) 5 mg PO TID PRN PRN Reason: Muscle Spasm Stop: 02/08/24 14:25 Bisacodyl (Bisacodyl 10 Mg Supp) [address] DAILY PRN PRN Reason: Constipation Stop: 02/08/24 14:25 Diphenhydramine HCl (Diphenhydramine Capsule 25 Mg Cap) 25 mg PO Q6H PRN PRN Reason: Allergic Rhinitis/Insomnia Stop: 02/08/24 14:25 Ezetimibe (Ezetimibe 10 Mg Tab) 5 mg PO [facility] Stop: 02/09/24 08:59 Last Admin: 01/11/24 09:51 Dose: 5 mg Famotidine (Famotidine 20 Mg Tab) 20 mg PO Q12H PRN PRN Reason: Dyspepsia Stop: 02/08/24 14:25 Hydromorphone HCl (Hydromorphone Inj 0.5 Mg/0.5 Ml Syr) 0.5 mg IV Q3H PRN PRN Reason: MODERATE Pain (Scale 4,5,6) & Pre PT Stop: 01/23/24 14:25 Hydromorphone HCl (Hydromorphone Inj 1 Mg/Ml Syringe) 1 mg IV Q3H PRN PRN Reason: SEVERE Pain (Scale 7,8,9,10) Stop: 01/23/24 14:25 Hydroxyzine HCl (Hydroxyzine Hcl 25 Mg Tab) 25 mg PO Q8H PRN PRN Reason: Anxiety Stop: 02/08/24 14:25 Lactated Ringer's (Lr) 1,000 mls @ 100 mls/hr IV .Q10H [facility] Stop: 02/08/24 14:25 Last Admin: 01/11/24 00:19 Dose: Not Given Promethazine HCl 12.5 mg/ (Sodium Chloride) 50.5 mls @ 202 mls/hr IV Q6H PRN PRN Reason: Nausea &/or Vomiting Stop: 02/08/24 14:25 Acetaminophen (Ofirmev) 1,000 mg in 100 mls @ 400 mls/hr IV Q8H PRN PRN Reason: Pain Rating 1-3 & Pre PT Stop: 01/12/24 14:25 Lorazepam 0.5 mg/ Syringe 0.5 mls @ 2 mls/min IV Q8H PRN; Protocol PRN Reason: Sedation/Anxiety Stop: 02/08/24 14:25 Dexamethasone 6 mg/ Syringe 1.5 mls @ 1 mls/min IV DAILY [facility] Stop: 01/12/24 09:02 Last Admin: 01/11/24 09:51 Dose: 1 mls/min Influenza Virus Vaccine Quadrival (Do Not Administer Flu Vaccine) 1 each N/A PRN PRN PRN Reason: Notification Stop: 02/08/24 14:25 Ketorolac Tromethamine (Ketorolac Tromethamine 15 Mg/Ml Vial) 15 mg IV Q6H PRN PRN Reason: Pain Stop: 01/16/24 08:18 Lorazepam (Lorazepam 0.5 Mg Tab) 0.5 mg PO Q8H PRN PRN Reason: Sedation/Anxiety Stop: 02/08/24 14:25 Magnesium Hydroxide (Magnesium Hydroxide Susp 30 Ml Udc) 30 ml PO Q24H PRN PRN Reason: Constipation Stop: 02/08/24 14:25 Metoclopramide HCl (Metoclopramide Hcl Inj 5 Mg/Ml 2 Ml Vial) 10 mg IV Q6H PRN PRN Reason: Nausea &/or Vomiting Stop: 02/08/24 14:25 Metoprolol Succinate (Metoprolol Succ 25mg Ext Rel Tab) 12.5 mg PO QAM [facility] Stop: 02/09/24 09:44 Last Admin: 01/11/24 09:50 Dose: 12.5 mg Naloxone HCl (Naloxone Hcl 0.4 Mg/1 Ml Vial/Carp) 0.1 mg IV Q5M PRN PRN Reason: Oversedation/Resp depression Stop: 02/08/24 14:25 Ondansetron HCl (Ondansetron Inj 2 Mg/Ml 2 Ml Vial) 4 mg IV Q6H PRN PRN Reason: Nausea &/or Vomiting Stop: 02/08/24 14:25 Ondansetron HCl (Ondansetron 4 Mg Od Tab) 4 mg PO Q6H PRN PRN Reason: Nausea Stop: 02/08/24 14:25 Oxycodone HCl (Oxycodone Hcl Ir 5 Mg Tab (Immediate Release)) 5 - 10 mg PO Q4H PRN PRN Reason: Pain & Pre PT Stop: 01/23/24 14:25 Last Admin: 01/10/24 05:40 Dose: 5 mg Pneumococcal Polyvalent Vaccine (Do Not Administer Pneumococcal Vaccine) 1 each N/A PRN PRN PRN Reason: Notification Stop: 02/08/24 14:25 Polyethylene Glycol (Polyethylene (Miralax) 17 Gm Pack) 17 gm PO Q6 [facility] Stop: 02/09/24 05:59 Last Admin: 01/11/24 04:02 Dose: 17 gm Senna/Docusate Sodium (Docusate Sodium/Senna 50/8.6mg Tab) 2 tab PO HS [facility] Stop: 02/08/24 20:59 Last Admin: 01/10/24 20:30 Dose: 2 tab Sodium Biphosphate/Sodium Phosphate (Sod Phosphate/Sod Biphosphate Enema 132 Ml Btl) [address] ONE PRN PRN Reason: Constipation Stop: 02/08/24 14:25 Tramadol HCl (Tramadol Hcl 50 Mg Tablet) 50 - 100 mg PO Q4H PRN PRN Reason: Moderate-Severe pain & Pre PT Stop: 02/08/24 14:25 Last Admin: 01/10/24 20:41 Dose: 50 mg Vitamin D (Cholecalciferol 25 Mcg (1000 Units) Tab) 25 mcg PO DAILY [facility] Stop: 02/09/24 08:59 Last Admin: 01/11/24 09:50 Dose: 25 mcg
--- NOTE | 2024-01-11 17:31 | Hospitalist Progress Note ---
Date of Service January 11, 2024 Assessment & Plan (1) Neurogenic claudication due to lumbar spinal stenosis: (2) Abnormal EKG: (3) HLD (hyperlipidemia): (4) Osteoporosis: Plan Pt is a 73yoF with PMhx significant for HTN, HLD, RA, osteoporosis, chronic back pain who is s/p lumbar decompression and spinal fusion with Dr Leigh on 01/10/2024. Hospital Medicine consulted due to cardiac abnormalities noted by anesthesia during surgery. 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 Continuous t elemetry monitoring post-op. Plan discussed with pt and family at bedside and she is agreeable to further evaluation. Cardiology consulted, appreciate recs -trop, TSH, repeat EKG, echo, LDL -Mag goal >2, K goal 4.5-5 -start Toprol XL, increase amlodipine to 10mg -continue zetia, statin intolerance -zio patch outpt to monitor for atrial fibrillation Continue to monitor on telemetry, otherwise daily EKGs HTN On amlodipine 5mg usually, PCP medical clearance noted that it was increased to 7.5mg until her surgery. Continue with the 10mg dose at this time per cardiology recs Metoprolol succ 12.5mg added by cardiology on 01/09. Continue Continue to monitor HLD Continue home ezetimibe Osteoporosis Vit D deficiency Continue home Vit D supplement Chronic back pain Neurogenic claudication due to lumbar spinal stenosis s/p Lumbar Decompression and spinal fusion with Dr Leigh on 01/10/2024 EBL#100ml Pain management per ortho Wound management per ortho PT/OT as appropriate DVT prophylaxis per ortho Incentive spirometry Monitor H&H for acute blood loss anemia; Pre-op Hgb: 14.5, hgb currently 12 postop Holding home baclofen, Celebrex, tramadol at this time. DVT prophylaxis: SCDs/TEDS at this time, per primary team Diet: HH CODE STATUS: Full code Dispo: per primary team Admission and Anticipated Discharge Date Admission Date: January 09, 2024 Subjective Pt states she has not slept for 2 nights due to her roommate. Feeling tired. Working with PT. Review of Systems Review of Systems: All systems reviewed & are unremarkable except as noted in Subjective Physical Exam Physical Exam: General: Alert, oriented. No acute distress Psych: Appropriate mood and affect Neuro: no gross deficits sitting in chair HEENT: NC/AT Chest: Nontender to palpation. CV: RRR, Normal s1, s2. Blowing murmur appreciated Resp: Breath sounds clear bilaterally, no increased effort of breathing. Abdomen: Soft, nontender, nondistended. Extremities: No edema in lower extremities bilaterally. Results & Data Results & Data Vital Signs (Past 12 Hours) Vital Signs Temp Pulse Pulse Pulse Resp BP Pulse Ox 01/11/24 16:12 36.8 C 66 16 156/55 H 98 01/11/24 11:36 36.7 C 59 L 16 135/80 97 01/11/24 08:09 36.6 C 59 L 16 154/84 H 98 01/11/24 06:02 65 O2 Del Method 01/11/24 16:12 Room Air 01/11/24 11:36 Room Air 01/11/24 08:09 Room Air 01/11/24 06:02
[2024-01-11] MEDS ORDERED: Nursing to Pharmacy Communication SCH (21:00)
[2024-01-11] MEDS: MELATONIN 3 MG TAB PO PRN (22:07)
[2024-01-12] MEDS: KETOROLAC TROMETHAMINE 15 MG/ML VIAL IV PRN (04:39)
[2024-01-12 07:14] LABS: Hematocrit (blood only) 33.2 % (37.0-47.0); Mean Corpuscular Hemoglobin 31.1 pg (25.0-34.0); Mean Corpuscular Hgb Conc 33.1 g/dL (32.0-36.0); Mean Corpuscular Volume 93.8 fL (80.0-100.0); Mean Platelet Volume 10.4 fL (9.4-12.4); Platelet Count 183 K/uL (130-400); RDW Coefficient of Variation 11.9 % (11.5-14.5); RDW Standard Deviation 41.2 fL (36.4-46.3); Red Blood Count 3.54 M/uL (4.20-5.40)
[2024-01-12 07:48] LABS: BUN Creatinine Ratio 39.7 (10-20); Creatinine Clr Calc Pharmacy 61.5 ml/min; Est GFR (African American) 99.9 ml/min; Est GFR (Non-African American) 86.2 ml/min; Magnesium 2.1 mg/dl (1.7-2.4); Phosphorus 3.8 mg/dl (2.5-4.9); Potassium 4.3 mmol/L (3.5-5.1)
[2024-01-12 08:03] VITALS: RESP 16; TEMP 97.5; O2SAT 100
[2024-01-12] MEDS: amLODIPine BESYLATE 5 MG TAB PO SCH (08:44)
--- NOTE | 2024-01-12 10:21 | Discharge Summary ---
Date of Service January 12, 2024 Admission HPI Per Admitting Provider This is a 73-year-old female presents with chronic persistent back and leg pain after failing course of nonoperative care is here for surgical invention. Principal Diagnosis Lumbar spinal stenosis with neurogenic claudication Discharge Data Allergies Allergy/AdvReac Type Severity Reaction Status Date / Time Sutures Allergy Unknown (CAT GUT) Verified 01/11/24 22:40 REDNESS, INFLAMMATION codeine AdvReac Unknown Gastrointestinal Verified 01/09/24 09:23 [From Tylenol-Codeine] Upset sulfamethoxazole AdvReac Nausea Verified 01/09/24 14:36 [From Sulfamethoxazole-Trimethoprim] trimethoprim AdvReac Nausea Verified 01/09/24 14:36 [From Sulfamethoxazole-Trimethoprim] Consultations 01/09/24 14:26 Consult Hospitalist Routine 01/10/24 07:00 Consult Cardiology Routine Procedures Performed Operation Date: 01/09/24 10:25 Actual Procedures p L4-L5 Decompression and Fusion, Spinal Cord Monitoring(Not Applicable) - Samuel Leigh DO Ordered Studies 01/09/24 10:25 FL lumbar spine 2-3V Routine Hospital Course (1) Neurogenic claudication due to lumbar spinal stenosis: Total Time Total Time Spent Total Time Spent (In Minutes): Patient with lumbar decompression fusion tolerated as well as negative orthopedic. Postop Obed she tolerated physical therapy HEATHER drain decreasing probably. Pain well-controlled. Subsequent discharge home. Discharge orders instructions from the chart for further review. Discharge Plan Discharge Items Patient Disposition: Home - Self-Care Reason For Visit: Spinal Stenosis of Lumbar Region with Neurogenic C Discharge Diagnosis: Lumbar spinal stenosis with neurogenic claudication Activity: As commented below Non-emergency contact: Primary Care Provider Call non-emergency contact if: you have any medication questions Follow-up/Referrals: Janice Hale D.O. [Primary Care Provider] - Diet: Regular Addtl Attending Provider Instructions: ACTIVITY RECOMMENDATIONS: SELF CARE INSTRUCTIONS AFTER THORACIC/LUMBAR FUSIONS 1. You may walk to your tolerance. It is good exercise for your legs and back. Expect some back and intermittent leg aches and pains. 2. You may perform "counter-top" level activities (make a sandwich, uma with a project, etc.). 3. No bending or lifting of more than 10 pounds or back twisting of any nature (roll like a log when turning in bed). 4. You may ride in a car for 20-30 minutes at a time. No driving until after your first visit with your doctor. 5. Frequent changes of position and restricting sitting to 30 minutes at a time will help limit the amount of back spasms and stiffness you may experience. 6. You may discontinue the use of ambulatory aids (cane, crutches, etc.) once your strength and confidence allow. 7. You may instructor product inspection the shower and let water strike your incision when you arrive home at least once daily. Do not take a tub bath, sit in a hot tub or go into a swimming pool until after your first recheck in the office. SPECIAL CARE INSTRUCTIONS: VERY IMPORTANT TO READ AND REVIEW A. Your surgical incision has been closed with a cosmetic suture under the skin that will dissolve in about 6 weeks. In 14 days, you can use a pair of clean scissors and cut the suture that is left outside of the skin at the ends of your incision. 1. The small skin tapes can be removed 7 days after surgery if they have not fallen off by that point. 2. You may keep the wound open to air as much as possible to promote healing after post-op day number 5 unless told otherwise by your doctor. 3. If you think the wound looks like it is becoming infected (redness or worsening drainage) and/or you are experiencing fever, chill or worsening back pain and muscle spasms, contact the office so that we may evaluate you as soon as possible. B. Complications are uncommon, but please contact us if you have any signs or symptoms of: 1. wound infection (fever higher than 102.5 degrees F, redness, separation of wound, drainage, or increasing pain from the incision) 2. blood clots in legs (pain, swelling, redness and warmth in legs) 3. urinary tract infection (fever higher than 102.5 degrees F, burning upon urination or increased frequency of urination) 4. nerve problems (inability to walk on your toes or heels, numbness, loss of bowel or bladder control) 5. any other symptoms that concern you C. Please call the office at if you have any concerns or questions about your operation or recovery. D. No smoking! Smoking drastically decreases the chance of a solid fusion. E. Do not take any anti-inflammatory medications (Indocin, Advil, Motrin, Aspirin, Naprosyn, etc.) as these may inhibit the chance of a solid fusion. Tylenol is okay to take for pain. MANAGING PAIN AFTER SPINAL SURGERY 1. Narcotic medication is intended for short-term use and will be provided for surgical pain. Surgical pain usually lasts for a period of 4-6 weeks. Narcotic medication includes Percocet, Vicodin, Darvocet, Tylenol #3 or Lortab. 2. Longer-term pain is more appropriately treated with non-narcotic medication such as Tylenol ES. 3. Muscle spasm is not appropriately treated with narcotics. Muscle relaxers such as Soma, Flexeril or Skelaxin can be used along with Tylenol ES. 4. Remember that we all live with some "aches and pains". This is not unusual or uncommon after an injury or as we get older. a. Back pain is expected and may include muscle spasms for 4 to 6 weeks after surgery. The pain should gradually improve. If the pain worsens for no apparent reason, please contact the office. b. Intermittent leg pain may also be experienced and should not be concerned about unless it worsens for no apparent reason. If so, please contact the office. 5. We will provide appropriate medication within the normal guidelines of their prescribed use. We will also be very cautious and aware of potential abuse and extended duration of patients' medication needs. a. Pain medications are for your comfort and to assist with sleep and rest so that the tissue can heal. They are not provided in order to return to normal activity and should not be used through the day. To do so or worsening pain at night can result from ongoing tissue damage and development of tolerance to the prescribed medicine. 6. Please allow 2-3 days to process refills. Prescriptions will not be mailed but must be picked up at the office. FOLLOW UP VISIT: Keep your scheduled follow-up appointment. Any questions, please call the office at . Pending Studies at Discharge: No Stand-Alone Forms: My [employer], Smoking Cessation Medications and DC Order Prescriptions: New tramadol 50 mg tablet 50 mg PO Q6H PRN (Reason: pain, moderate) Qty: 30 0RF oxycodone 5 mg tablet 5 mg PO Q6H PRN (Reason: pain) Qty: 30 0RF Continued ezetimibe [Zetia] 10 mg tablet 5 mg PO QAM baclofen 10 mg tablet 5 mg PO TID PRN (Reason: Muscle Spasm) amlodipine [Norvasc] 2.5 mg tablet 5 mg PO QAM docusate sodium 100 mg capsule 100 mg PO DAILY diphenhydramine-acetaminophen [Tylenol PM Extra Strength] 25-500 mg tablet 1 tab PO Q6H PRN (Reason: Sleep) cholecalciferol (vitamin D3) 25 mcg (1,000 unit) capsule 25 mcg PO DAILY celecoxib [Celebrex] 200 mg capsule 200 mg PO QAM tramadol 50 mg tablet 50 mg PO QAM Discharge Orders: Discharge Order (Routine); Ordered 01/12/24 Ordered By: Samuel Leigh Admission Data Admit Date/Time: 01/09/24 12:18 Attending Provider: Samuel Leigh Admit Provider: Samuel Leigh Primary Care Provider: Janice Hale Other Providers: Dalia Montero
[2024-01-12 11:12] VITALS: BP 155/75; PULSE 62
--- NOTE | 2024-01-12 13:43 | Hospitalist Progress Note ---
Date of Service January 12, 2024 Assessment & Plan (1) Neurogenic claudication due to lumbar spinal stenosis: (2) Abnormal EKG: (3) HLD (hyperlipidemia): (4) Osteoporosis: Plan Pt is a 73yoF with PMhx significant for HTN, HLD, RA, osteoporosis, chronic back pain who is s/p lumbar decompression and spinal fusion with Dr Leigh on 01/10/2024. Hospital Medicine consulted due to cardiac abnormalities noted by anesthesia during surgery. Abnormal EKG Intraop HTN and Tachycardia Per Anesthesia, pt with episode of HTN and tachycardia (as high as 120s) during surgery, noted ST depressions during that time Was treated with IV labetalol and metoprolol and HTN, tachycardia and ST depressions resolved Noted that pt had normal pre-op EKG and echocardiogram, receiving medical clearance from her pcp and Cardiology in [facility] on 01/02/2024 -cardiology clearance with [facility] noting aortic stenosis (mild) and possible mild pulmonary HTN noted on pre-op echo (electrician helper notes her PA pressure was ~50) -pt reportedly due to have outpt stress test with Cardiology, had one last in 2013 Given cardiac changes noted during surgery which is a "stressor" in itself, will repeat EKG, echo and consult Cardiology inpatient for further recs. Continuous t elemetry monitoring post-op. Plan discussed with pt and family at bedside and she is agreeable to further evaluation. Cardiology consulted, appreciate recs -trop, TSH, repeat EKG, echo, LDL -Mag goal >2, K goal 4.5-5 -start Toprol XL, increase amlodipine to 10mg -continue zetia, statin intolerance -zio patch outpt to monitor for atrial fibrillation Continue to monitor on telemetry, otherwise daily EKGs HTN On amlodipine 5mg usually, PCP medical clearance noted that it was increased to 7.5mg until her surgery. Continue with the 10mg dose at this time per cardiology recs Metoprolol succ 12.5mg added by cardiology on 01/09. Continue Continue to monitor HLD Continue home ezetimibe Osteoporosis Vit D deficiency Continue home Vit D supplement Chronic back pain Neurogenic claudication due to lumbar spinal stenosis s/p Lumbar Decompression and spinal fusion with Dr Leigh on 01/10/2024 EBL#100ml Pain management per ortho Wound management per ortho PT/OT as appropriate DVT prophylaxis per ortho Incentive spirometry Monitor H&H for acute blood loss anemia; Pre-op Hgb: 14.5, hgb currently 12 postop Holding home baclofen, Celebrex, tramadol at this time. DVT prophylaxis: SCDs/TEDS at this time, per primary team Diet: HH CODE STATUS: Full code Dispo: per primary team Admission and Anticipated Discharge Date Admission Date: January 09, 2024 Physical Exam Physical Exam: General: Alert, oriented. No acute distress Psych: Appropriate mood and affect Neuro: no gross deficits sitting in chair HEENT: NC/AT Chest: Nontender to palpation. CV: RRR, Normal s1, s2. Blowing murmur appreciated Resp: Breath sounds clear bilaterally, no increased effort of breathing. Abdomen: Soft, nontender, nondistended. Extremities: No edema in lower extremities bilaterally. Results & Data Results & Data Vital Signs (Past 12 Hours) Vital Signs Temp Pulse Pulse Pulse Resp BP BP 01/12/24 11:10 36.4 C L 56 L 62 16 161/72 H 155/75 H 01/12/24 08:02 36.4 C L 56 L 16 161/72 H 01/12/24 06:00 57 L 01/12/24 04:00 36.7 C 62 18 158/71 H Pulse Ox O2 Del Method 01/12/24 11:10 100 01/12/24 08:02 100 Room Air 01/12/24 06:00 01/12/24 04:00 98 Room Air
--- NOTE | 2024-01-12 13:54 | Communication Note ---
Date of Service: January 12, 2024 Pt called and notified that metoprolol succinate 12.5mg qAM was sent to her pharmacy at about 1:51pm. Advised to continue with her home amlodipine dose. She notes that she was advised by Cardiology to follow up with her [facility] for a needed Zio patch/heart monitor. She states she already has her cardiology appointment set up and will keep follow up. Appreciative for the call.
== END 2024-01-12 13:00 | disposition home or self-care (01) | DRG 454 ==
LOC: ASU 08:37 → 2N 12:18
DX: Z79.899 Other long term (current) drug therapy; E55.9 Vitamin D deficiency, unspecified; I35.0 Nonrheumatic aortic (valve) stenosis; I10 Essential (primary) hypertension; D62 Acute posthemorrhagic anemia; I27.20 Pulmonary hypertension, unspecified; Z68.32 Body mass index [BMI] 32.0-32.9, adult; E78.5 Hyperlipidemia, unspecified; I47.10 Supraventricular tachycardia, unspecified; E66.9 Obesity, unspecified; Z91.048 Other nonmedicinal substance allergy status; M81.0 Age-related osteoporosis without current pathological fracture; Z88.5 Allergy status to narcotic agent; Z88.1 Allergy status to other antibiotic agents; M48.062 Spinal stenosis, lumbar region with neurogenic claudication; Z88.6 Allergy status to analgesic agent